=== PATIENT | male | born 1945 | race Caucasian/White ===

== ENCOUNTER → 2016-05-06 | Outpatient (CLI) | payer OTHER ==
[~2016-05-06] MED LIST: ACTOS 30 MG TAB30 M1 PO; ALEVE220 MG PO; ASPIR 8181 MG PO; ATORVASTATIN CA40 MG PO; AZOR 5-20 MG T1 EACH PO; BYSTOLIC 5 MG5 M1 PO; CHROMIUM PICO400 MCG PO; FLOMAX0.4 MG PO; GLUCOTROL5 MG PO; HYDROCODONE-AP1 EAC6 PO; JANUVIA100 MG PO; VITAMIN D-32000 UNIT PO; VITAMINC500 PO
--- NOTE | ~2016-05-06 | CARDNUC ---
[facility] [place] [address] CARDIAC NUCLEAR IMAGING REPORT Name: CAROLYN AGUILERA Room #: REG [facility]#: [id number] Admission: 05/06/16 Attend Phys: Alex Malave, Discharge: Date of : 41 Date of Service: 05/06/16 1650 Report #: [id number] THIS REPORT FOR: //name// CC: Alex Villasenorfer Filipelotus DATE OF SERVICE: 05/06/2016 MYOCARDIAL PERFUSION IMAGING STUDY USING REGADENOSON. GENDER: Male. REFERRING PHYSICIAN: SWIMMING POOL PLASTERER HELPER: Alex Malave MD [facility] INDICATION: Dyspnea. CORONARY HISTORY: CAD/PCI. CARDIOVASCULAR RISK FACTORS: Include age, hypertension, hyperlipidemia and diabetes mellitus. CARDIAC MEDICATIONS: Bystolic, amlodipine and aspirin. TYPE OF STUDY: The patient underwent a SPECT study. STRESS PROTOCOL: A total of 0.4 mg of regadenoson was injected intravenously, followed by Cardiolite. The patient did not ambulate during the procedure. HEMODYNAMIC DATA: The resting heart rate was 68 beats per minute, with a blood pressure 170/60 mmHg. Following regadenoson infusion, the heart rate increased to 77 beats per minute and the systolic blood pressure decreased to 155 mmHg. The patient had symptoms consistent with regadenoson, but no chest discomfort. ELECTROCARDIOGRAM: The resting electrocardiogram revealed a paced rhythm. Following regadenoson, there were no significant arrhythmias and the ECG is uninterpretable for ST segment changes. PERFUSION IMAGING: Myocardial perfusion imaging was performed using Cardiolite, 12.0 mCi for the resting images and 33.7 mCi for the stress images. This was a same day rest-stress imaging protocol. Gated SPECT images were obtained. Comparison of the post-pharmacologic stress and rest images reveal homogeneous uptake of isotope within all myocardial segments. The gated portion of the study revealed normal global and segmental LV systolic function, ejection [facility] [place] [address] CARDIAC NUCLEAR IMAGING REPORT Name: CAROLYN AGUILERA Room #: REG [facility].#: [id number] Admission: 05/06/16 Attend Phys: Alex Malave, Discharge: Date of : 41 Date of Service: 05/06/161649 Report #: [id number] fraction of 65%. IMPRESSION: 1. Clinical response, nondiagnostic. 2. Stress ECG response, nondiagnostic. 3. Perfusion imaging, nonischemic. 4. Ventricular function, normal. CONCLUSION: This study is of low probability for inducible ischemia or prior infarct. There is normal global and segmental LV systolic function. <ELECTRONICALLY SIGNED> By: Jose Gilman MD 05/07/16 0945 [id number] Jose Gilman MD /nt
== END ==
LOC: NUC 08:27
DX: R06.00 Dyspnea, unspecified (principal); I10 Essential (primary) hypertension; E78.5 Hyperlipidemia, unspecified

== ENCOUNTER → 2016-07-16 | Outpatient (CLI) | payer OTHER | LOC: CAT 09:43 | DX: J84.9 Interstitial pulmonary disease, unspecified (principal); J47.9 Bronchiectasis, uncomplicated; J98.4 Other disorders of lung ==

== ENCOUNTER → 2017-10-29 | Outpatient (CLI) | payer OTHER ==
--- NOTE | ~2017-10-29 | 2DMMODE ---
[facility] [address] [place] [address] 2 D/M-MODE ECHOCARDIOGRAM Name: CAROLYN AGUILERA Room #: REG [facility]#: [id number] Admission: 10/29/17 Attend Phys: Alex Malave, Discharge: Date of : 41 Date of Service: 10/29/17 1622 Report #: [id number] THIS REPORT FOR: //name// APPROVED REPORT Study performed: 10/29/2017 14:16:45 EXAM: Comprehensive 2D, Doppler, and color-flow Echocardiogram Patient Location: Echo lab Status: routine BSA: 1.84 HR: 67 bpm BP: 145/70 mmHg Indications CAD 2D Dimensions RVDd: 38.63 mm LVEF(%): 53.87 (>50%) IVSd: 14.68 (7-11mm) LVOT Diam: 21.36 (18-24mm) LVDd: 49.09 mm PWd: 14.05 (7-11mm) Ascending Ao: 38.07 (22-36mm) LVDs: 35.40 (25-40mm) Aortic Root: 32.42 mm IVC: 18.00 mm Price's LVEF: 53.87 % Volumes Left Atrial Volume (Systole) Single Plane 4CH: 60.10 mL Single Plane 2CH: 46.93 mL LA ESV Index: 32.00 mL/m2 Aortic Valve AoV Peak Fabio.: 1.49 m/s AO Peak Gr.: 8.90 mmHg LVOT Max P.04 mmHg LVOT Max V: 1.00 m/s NANDINI Vmax: 2.41 cm2 AI Vmax: 3.36 m/s AI Coffee: 2.51 m/s2 AI PHT: 387.49 ms Mitral Valve E/A Ratio: 1.1 MV Decel. Time: 186.36 ms MV E Max Fabio.: 1.01 m/s [facility] [place] [address] 2 D/M-MODE ECHOCARDIOGRAM Name: CAROYLN AGUILERA MADDY Room #: REG [facility]#: [id number] Admission: 10/29/17 Attend Phys: Alex Malave, Discharge: Date of : 41 Date of Service: 10/29/17 1622 Report #: [id number] MV A Fabio.: 0.94 m/s MV PHT: 54.04 ms IVRT: 41.52 ms Pulmonary Valve PV Peak Fabio.: 1.25 m/s PV Peak Gr.: 6.20 mmHg Pulmonary Vein P Vein S: 0.68 m/s P Vein A: 0.29 m/s P Vein D: 0.59 m/s P Vein A Dur.: 161.5 msec P Vein S/D Ratio: 1.15 Tricuspid Valve TR Peak Fabio.: 2.49 m/s RAP Estimate: 5.00 mmHg TR Peak Gr.: 24.86 mmHg PA Pressure: 30.00 mmHg Left Ventricle The left ventricle is normal size. There is normal LV segmental wall motion. Mild to moderate concentric left ventricular hypertrophy. The left ventricular systolic function is normal. LVEF is 55-60%. Right Ventricle The right ventricle is normal size. The right ventricular systolic function is normal. Atria The left atrium size is normal. The right atrium size is normal. Aortic Valve Aortic valve is mildly calcified, trileaflet Mild aortic regurgitation. There is no aortic valvular stenosis. Mitral Valve Mild mitral annular calcification Trace mitral regurgitation. No evidence of mitral valve stenosis. Tricuspid Valve The tricuspid valve is normal in structure. Trace tricuspid regurgitation. Estimated PAP is 30 mmHg. Pulmonic Valve The pulmonary valve is normal in structure. There is no pulmonic valvular regurgitation visualized. [facility] [address] [place] [address] 2 D/M-MODE ECHOCARDIOGRAM Name: CAROLYN AGUILERA Room #: REG [facility]#: [id number] Admission: 10/29/17 Attend Phys: Alex Malave, Discharge: Date of : 41 Date of Service: 10/29/17 1622 Report #: [id number] Great Vessels The aortic root is normal in size. IVC is normal in size and collapses >50% with inspiration. Pericardium There is no pericardial effusion. <Conclusion> The left ventricular systolic function is normal. LVEF is 55-60%. Aortic valve is mildly calcified, trileaflet. Mild aortic regurgitation, no stenosis. Mild mitral annular calcification. Trace mitral insufficiency Trace tricuspid regurgitation. Estimated pulmonary artery pressure of 30 mmHg. There is no pericardial effusion. <ELECTRONICALLY SIGNED> By: Alex Malave MD, FACC 10/29/17 1622 162 162 Alex Malave MD, FACC /INF
== END ==
LOC: ULTRA 10:16 → CV 10:17 → EDSTATUS 10:20 → CV 13:33
DX: I35.1 Nonrheumatic aortic (valve) insufficiency (principal); I25.10 Atherosclerotic heart disease of native coronary artery without angina pectoris; I70.0 Atherosclerosis of aorta; I10 Essential (primary) hypertension; I65.23 Occlusion and stenosis of bilateral carotid arteries; G47.33 Obstructive sleep apnea (adult) (pediatric); Z95.0 Presence of cardiac pacemaker

== ENCOUNTER → 2018-01-07 | Outpatient (CLI) | payer OTHER ==
[~2018-01-07] VITALS: Ht 167.6 cm; Wt 72.6 kg
[~2018-01-07] MED LIST changes: +LOPRESSOR25 PO; +LOTREL 5-20 MG1 EACH PO; +PIOGLITAZONE15 MG; +TYLENOL325 MG PO
--- NOTE | ~2018-01-07 | P ---
[facility] [place] [address] [place] [address] PROCEDURE REPORT Name: CAROLYN AGUILERA Room #: REG [facility]#: [id number] Admission: 01/07/18 Attend Phys: Bandar Kong MD Discharge: Date of : 41 Report #: [id number] THIS REPORT FOR: //name// CC: Alex Kong DATE OF SERVICE: 01/07/2018 PREOPERATIVE DIAGNOSIS: Pacemaker elective replacement indicator. POSTOPERATIVE DIAGNOSIS: Pacemaker elective replacement indicator. HISTORY: The patient is a 72-year-old with history of pacemaker implantation, whose device is at elective replacement interval. He is here for generator exchange. ANESTHESIA: The patient underwent MAC anesthesia with no anesthesia related complications. DESCRIPTION OF PROCEDURE: The patient underwent informed consent where we discussed the details of the procedure including the risks, which include but not limited to bleeding, infection and need for possible lead revisions. He understood these risks and was willing to proceed. The patient was brought to the EP laboratory in a fasting and sedated state and prepped and draped in a sterile fashion. Next, the patient received IV antibiotics and then I injected lidocaine at the prior incision site. Incision was made, the chronic pocket was entered and I expanded the pocket to make room for the larger pacemaker. The old device was disconnected and connected to the new device. New device was tested and found to be functioning normally. The pocket was irrigated with vancomycin and then the pocket was closed in 3 layers using 2-0 for the deep layer, 3-0 for the mid layer and 4-0 for the subcuticular layer. Surgical glue was placed to the outer skin layer. The patient awoke neurologically and hemodynamically intact. No complications and no significant bleeding. The explanted pacemaker was a [employer]onic model #ADDRS1, serial #[id number]. The newly implanted pacemaker is a [employer] model #QD2791, serial #[id number]. The atrial lead is [employer] model #5076, serial #[id number], implanted on 11/30/2008. This lead demonstrated a P-wave of 3.1 millivolts, pacing impedance of 380 ohms and a pacing threshold of 0.5 volts at 0.4 milliseconds. The RV lead was a [employer] model #5076, serial #[id number] with an R-wave of 7.3 millivolts, pacing impedance of 410 ohms and a pacing threshold of 1 volt at 0.4 milliseconds. The device was programmed to DDDR 60-130 mode. CONCLUSIONS: [facility] [address] [place] [address] PROCEDURE REPORT Name: CAROLYN AGUILERA Room #: REG [facility]#: [id number] Admission: 01/07/18 Attend Phys: Bandar Kong MD Discharge: Date of : 41 Report #: [id number] 1. Successful pacemaker generator change. 2. Satisfactory atrial and ventricular pacing and sensing thresholds. By: [id number] Bandar Kong MD /sergio
[2018-01-07 07:21] VITALS: BP 127/65
[2018-01-07 07:37] LABS: HEMATOCRIT 40.1 % (42.0-52.0); HEMOGLOBIN 13.2 gm/dL (14.0-18.0); MCH 29.9 pg (26.0-34.0); MCV 90.6 fL (80.0-100.0); PLATELET COUNT 309 thou/uL (150-400); RBC 4.42 mil/uL (4.50-6.00); RDW 14.7 % (10.5-14.5); WBC 5.8 thou/uL (4.0-11.0)
[2018-01-07 07:46] LABS: CALCIUM 8.8 mg/dL (8.5-10.1); CREATININE 1.2 mg/dL (0.7-1.3); POTASSIUM 4.2 mmol/L (3.5-5.1)
[2018-01-07 07:51] LABS: ALBUMIN 3.4 g/dL (3.4-5.0); TOTAL BILIRUBIN 0.7 mg/dL (<0.1-1.0); TOTAL PROTEIN 6.6 g/dL (6.4-8.2)
[2018-01-07 07:52] LABS: APTT 28.2 Seconds (24.5-32.8); PROTIME 10.7 Seconds (9.3-11.4)
[2018-01-07 08:14] LABS: ABSOLUTE NEUTROPHILS 4.1 thou/uL (1.4-8.2)
== END | disposition home or self-care (01) ==
LOC: CATH 06:32
PROVIDERS: Internal Medicine Cardiovascular Disease
DX: Z45.010 Encounter for checking and testing of cardiac pacemaker pulse generator [battery] (principal); I10 Essential (primary) hypertension; E78.00 Pure hypercholesterolemia, unspecified; E11.9 Type 2 diabetes mellitus without complications; N40.0 Benign prostatic hyperplasia without lower urinary tract symptoms; Z98.890 Other specified postprocedural states; Z98.41 Cataract extraction status, right eye; Z98.42 Cataract extraction status, left eye; Z95.5 Presence of coronary angioplasty implant and graft; Z79.899 Other long term (current) drug therapy; Z79.82 Long term (current) use of aspirin; Z79.01 Long term (current) use of anticoagulants
CPT/HCPCS: 62110; 62900; 70005

== ENCOUNTER → 2018-05-05 | Outpatient (CLI) | payer OTHER | LOC: ULTRA 07:54 | DX: I25.10 Atherosclerotic heart disease of native coronary artery without angina pectoris (principal); I65.22 Occlusion and stenosis of left carotid artery; E78.5 Hyperlipidemia, unspecified; I10 Essential (primary) hypertension; E11.9 Type 2 diabetes mellitus without complications ==

== ENCOUNTER → 2019-03-03 | Outpatient (CLI) | payer OTHER | LOC: RAD 10:04 | DX: J47.9 Bronchiectasis, uncomplicated (principal) ==

== ENCOUNTER → 2019-05-11 | Outpatient (CLI) | payer OTHER | LOC: SJCVC 09:53 | DX: I11.9 Hypertensive heart disease without heart failure (principal); R94.31 Abnormal electrocardiogram [ECG] [EKG]; I25.10 Atherosclerotic heart disease of native coronary artery without angina pectoris; E78.5 Hyperlipidemia, unspecified; I65.23 Occlusion and stenosis of bilateral carotid arteries; G47.33 Obstructive sleep apnea (adult) (pediatric); E11.9 Type 2 diabetes mellitus without complications; E78.00 Pure hypercholesterolemia, unspecified; Z95.0 Presence of cardiac pacemaker; Z79.899 Other long term (current) drug therapy; Z98.61 Coronary angioplasty status ==

== ENCOUNTER → 2019-11-09 | Outpatient (CLI) | payer OTHER | LOC: SJCVC 10:50 | PROVIDERS: ATTEND Internal Medicine | DX: Z45.018 Encounter for adjustment and management of other part of cardiac pacemaker (principal); R94.31 Abnormal electrocardiogram [ECG] [EKG]; I25.10 Atherosclerotic heart disease of native coronary artery without angina pectoris; I10 Essential (primary) hypertension; E78.5 Hyperlipidemia, unspecified; I65.23 Occlusion and stenosis of bilateral carotid arteries; G47.33 Obstructive sleep apnea (adult) (pediatric); E11.9 Type 2 diabetes mellitus without complications; Z98.61 Coronary angioplasty status; Z79.899 Other long term (current) drug therapy ==